=== PATIENT | male | born 1940 | race Caucasian/White ===

== ENCOUNTER 2019-04-16 09:10 | Emergency (ER) | payer MEDICARE, BC ==
[~2019-04-16] VITALS: Wt 59.0 kg
[~2019-04-16 09:10] MED LIST: CIPROFLOXACIN500 MG PO; ENDOCET 325 MG-1 TA5 PO; FEOSOL300 MG PO; KEFLEX500 MG PO; KEFTAB500 MG PO; LISINOPRIL/HCTZ1 TA1 PO; LISINOPRIL20 MG PO; Levaquin PO; MACROBID100 M1 PO; MYCOLOG CREAM 115 GM T; SIMVASTATIN40 MG PO; VITAMIN D2000 IU PO; VITAMIN D5000 I2 PO; ZESTRIL,PRINIVI10 MG PO
[2019-04-16 09:55] VITALS: BP 119/70
[2019-04-16 10:09] LABS: BASO % 0.5 % (0.0-1.0); EOS % 0.4 % (1.0-4.0); HEMATOCRIT 39.7 % (42.0-52.0); HEMOGLOBIN 12.7 g/dl (14.0-18.0); LYMPH # 0.8 10*3/uL (1.3-4.4); LYMPH % 8.8 % (27.0-41.0); MEAN CELL VOLUME 95.7 fl (80.0-94.0); MEAN CORPUSCULAR HGB 30.6 pg (27.0-31.0); MEAN PLATELET VOLUME 9.1 fl (9.6-12.3); MONO # 0.4 10*3/uL (0.1-1.0); MONO % 4.3 % (3.0-9.0); NEUT # 7.4 10*3/uL (2.3-7.9); NEUT % 85.6 % (47.0-73.0); PLATELET COUNT AUTOMATED 266 10*3/uL (130-400); RED BLOOD COUNT 4.15 10*6/uL (4.50-5.90); RED CELL DISTRI WIDTH 12.9 % (0-14.5); WHITE BLOOD COUNT 8.6 10*3/uL (4.8-10.8)
[2019-04-16 10:29] LABS: ALBUMIN 3.9 gm/dl (3.1-4.5); CREATININE 1.76 mg/dL (0.70-1.30); POTASSIUM 4.4 mmol/L (3.5-5.1); TOTAL PROTEIN 7.4 gm/dL (6.4-8.2)
== END 2019-04-16 11:32 | disposition home or self-care (01) ==
LOC: ED 09:10
PROVIDERS: Emergency Medicine
DX: S61.412A Laceration without foreign body of left hand, initial encounter (principal); F03.90 Unspecified dementia, unspecified severity, without behavioral disturbance, psychotic disturbance, mood disturbance, and anxiety; I12.9 Hypertensive chronic kidney disease with stage 1 through stage 4 chronic kidney disease, or unspecified chronic kidney disease; N18.9 Chronic kidney disease, unspecified; Z79.899 Other long term (current) drug therapy; W19.XXXA Unspecified fall, initial encounter; Y93.89 Activity, other specified; Y92.098 Other place in other non-institutional residence as the place of occurrence of the external cause; Y99.8 Other external cause status

== ENCOUNTER 2019-04-25 23:50 | Emergency (ER) | payer MEDICARE, BC ==
[~2019-04-25] VITALS: Ht 162.5 cm; Wt 63.5 kg
[2019-04-25 23:58] VITALS: BP 120/66
== END 2019-04-26 01:35 | disposition home or self-care (01) ==
LOC: ED 23:50
DX: L08.89 Other specified local infections of the skin and subcutaneous tissue (principal); I10 Essential (primary) hypertension; Z93.6 Other artificial openings of urinary tract status; Z79.899 Other long term (current) drug therapy